=== PATIENT | female | born 1995 | race African-American/Black ===

== ENCOUNTER 2019-10-12 20:38 | Emergency (ER) | payer MEDICAID ==
[2019-10-12] MEDS ORDERED: DIPH/PERTUSS(ACELL)/TETANUS VAC/PF 0.5 ML SYR (>=10YO) IM ONE (20:54)
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
[2019-10-13 03:25] VITALS: BP 110/74
== END 2019-10-12 23:00 | disposition home or self-care (01) ==
LOC: ER 20:38
DX: S40.811A Abrasion of right upper arm, initial encounter (principal); S60.511A Abrasion of right hand, initial encounter; S00.81XA Abrasion of other part of head, initial encounter; Y09 Assault by unspecified means; F17.200 Nicotine dependence, unspecified, uncomplicated
CPT/HCPCS: 99283